=== PATIENT | female | born 1965 | race Hispanic/Latino ===

== ENCOUNTER 2025-02-18 07:09 | Emergency (ER) | payer OTHER ==
[~2025-02-18] VITALS: Ht 154.9 cm; Wt 80.7 kg
[2025-02-18 07:37] VITALS: PULSE 102; RESP 18
[2025-02-18] MEDS: ONDANSETRON HCL INJ 2MG/ML 2ML 2 MG/ML VIAL IV STA (07:37)
[2025-02-18] MEDS: SODIUM CHLORIDE 0.9% 1000ML 1,000 ML IV SCH (07:37)
[2025-02-18 07:41] LABS: BASOPHILS % 0.1 % (0.0-1.0); EOSINOPHILS % 0.1 % (0.0-6.0); LYMPHOCYTES % 4.0 % (18.0-39.1); MONOCYTES % 4.2 % (4.4-11.3); NEUTROPHILS % 91.2 % (38.7-80.0); RED CELL DISTRIBUTION WIDTH 14.6 % (11.7-14.4)
[2025-02-18] MEDS: ACETAMINOPHEN 325 MG TAB PO ONE (08:07)
[2025-02-18] MEDS: KETOROLAC TROMETHAMINE 30 MG/ML VIAL IV STA (08:08)
[2025-02-18 08:12] LABS: CORONAVIRUS COVID-19 AG NEGATIVE (NEGATIVE); INFLUENZA A NAA NEGATIVE (NEGATIVE); INFLUENZA B NAA NEGATIVE (NEGATIVE)
[2025-02-18 08:17] LABS: EST GLOMERULAR FILTRATION RATE 100.0 ML/MIN (>=60)
[2025-02-18 08:51] VITALS: TEMP 99.8
[2025-02-18] MEDS ORDERED: ONDANSETRON ODT4 MG PO (09:02)
[2025-02-18 09:25] LABS: LEUKOCYTE ESTERASE ,URINE SMALL (NEGATIVE); PROTEIN,URINE DIPSTICK TRACE (NEGATIVE)
[2025-02-18 09:26] LABS: URINE UROBILINOGEN 0.2 mg/dL (0.2 - 1); WBC,URINE (MAN) >50 /HPF (0-5)
[2025-02-18] MEDS ORDERED: CEFDINIR300 MG PO (09:50)
[2025-02-18 10:19] VITALS: BP 110/63; O2SAT 97
== END 2025-02-18 10:18 | disposition home or self-care (01) ==
LOC: ER 07:17
DX: R50.9 Fever, unspecified (principal); K52.9 Noninfective gastroenteritis and colitis, unspecified; R11.2 Nausea with vomiting, unspecified; N39.0 Urinary tract infection, site not specified; M06.9 Rheumatoid arthritis, unspecified; Z11.52 Encounter for screening for COVID-19
CPT/HCPCS: 36415; 80053; 81001; 83518; 83690; 85025; 87070; 87426; 99283; J1885; J2405; J2470; J7030